=== PATIENT | female | born 1965 | race Caucasian/White ===

== ENCOUNTER → 2016-05-05 | Outpatient (CLI) | payer BC ==
[2016-05-05 18:47] LABS: ALT 127 U/L (9-52); AST 109 U/L (14-36); Alkaline Phosphatase 87 U/L (38-126); Anion Gap 12 mmol/L; Blood Urea Nitrogen 9 mg/dL (7-17); Calcium 8.9 mg/dL (8.4-10.2); Carbon Dioxide 25 mmol/L (22-30); Chloride 106 mmol/L (98-107); GGT 77 U/L (12-43); Glucose 85 mg/dL (74-99); Non-African American GFR(MDRD) >60 (>60 ml/min/1.73 sqM); Potassium 4.5 mmol/L (3.5-5.1); Sodium 143 mmol/L (137-145); Total Bilirubin 0.3 mg/dL (0.2-1.3); Total Protein 6.5 g/dL (6.3-8.2)
== END | disposition home or self-care (01) ==
LOC: MMGSC 14:34
PROVIDERS: ATTEND Family Medicine
DX: R79.89 Other specified abnormal findings of blood chemistry (principal)
CPT/HCPCS: 36415; 80053; 82977

== ENCOUNTER → 2016-06-02 | Outpatient (CLI) | payer BC ==
[2016-06-02 18:42] LABS: Bilirubin, Delta 0.2 mg/dL (0.0-0.2); Total Bilirubin 0.4 mg/dL (0.2-1.3); Total Protein 6.8 g/dL (6.3-8.2)
== END | disposition home or self-care (01) ==
LOC: MMGSC 14:19
PROVIDERS: ATTEND Family Medicine
DX: R94.5 Abnormal results of liver function studies (principal)
CPT/HCPCS: 36415; 80076

== ENCOUNTER → 2016-08-13 | Outpatient (CLI) | payer BC ==
[2016-08-13 19:37] LABS: ALT 37 U/L (9-52); AST 36 U/L (14-36); Alkaline Phosphatase 99 U/L (38-126); Anion Gap 10 mmol/L; Blood Urea Nitrogen 10 mg/dL (7-17); Calcium 9.2 mg/dL (8.4-10.2); Carbon Dioxide 26 mmol/L (22-30); Chloride 105 mmol/L (98-107); Glucose 177 mg/dL (74-99); Non-African American GFR(MDRD) >60 (>60 ml/min/1.73 sqM); Potassium 4.3 mmol/L (3.5-5.1); Sodium 141 mmol/L (137-145); Total Bilirubin 0.4 mg/dL (0.2-1.3); Total Protein 6.8 g/dL (6.3-8.2)
[2016-08-13 20:25] LABS: Vitamin B12 871 pg/mL (239-931)
== END ==
LOC: MMGSC 11:25
PROVIDERS: ATTEND Family Medicine
DX: F10.10 Alcohol abuse, uncomplicated (principal)
CPT/HCPCS: 36415; 80053; 82607

== ENCOUNTER → 2017-08-02 | Outpatient (CLI) | payer BC ==
[2017-08-02 20:15] LABS: ALT 31 U/L (9-52); AST 31 U/L (14-36); Albumin 4.2 g/dL (3.5-5.0); Alkaline Phosphatase 99 U/L (38-126); Anion Gap 13 mmol/L; Blood Urea Nitrogen 14 mg/dL (7-17); Calcium 9.7 mg/dL (8.4-10.2); Carbon Dioxide 24 mmol/L (22-30); Chloride 105 mmol/L (98-107); Cholesterol 208 mg/dL (<200); Glucose 131 mg/dL (74-99); HDL Cholesterol 99 mg/dL (40-60); LDL Cholesterol,Calculated 92 mg/dL (0-99); Magnesium 2.1 mg/dL (1.6-2.3); Sodium 142 mmol/L (137-145); Total Bilirubin 0.4 mg/dL (0.2-1.3); Total Protein 7.2 g/dL (6.3-8.2); Triglycerides 87 mg/dL (<150)
[2017-08-02 20:31] LABS: T4, Free (Free Thyroxine) 1.08 ng/dL (0.78-2.19)
[2017-08-02 20:41] LABS: Basophils # (A) 0.1 k/uL (0-0.2); Basophils % (A) 1 %; Eosinophils # (A) 0.4 k/uL (0-0.7); Eosinophils % (A) 7 %; HCT 38.1 % (34.0-46.0); HGB 11.7 gm/dL (11.4-16.0); Hypochromasia Moderate; Lymphocytes # (A) 2.1 k/uL (1.0-4.8); Lymphocytes % (A) 39 %; MCH 26.4 pg (25.0-35.0); MCHC 30.7 g/dL (31.0-37.0); MCV 86.1 fL (80.0-100.0); Mean Platelet Volume 9.5; Monocytes # (A) 0.3 k/uL (0-1.0); Monocytes % (A) 5 %; Neutrophils # (A) 2.5 k/uL (1.3-7.7); Neutrophils % (A) 46 %; Platelet Count 303 k/uL (150-450); RBC 4.43 m/uL (3.80-5.40); RDW 14.3 % (11.5-15.5); WBC 5.4 k/uL (3.8-10.6)
[2017-08-03 02:16] LABS: Vitamin D 25 Hydroxy 20.7 ng/mL (30.0-100.0)
[2017-08-03 02:33] LABS: Iron Saturation 6.48 (12.00-45.00)
== END | disposition home or self-care (01) ==
LOC: MMGSC 15:50
PROVIDERS: ATTEND Family Medicine
DX: M79.662 Pain in left lower leg (principal); M79.661 Pain in right lower leg; R20.2 Paresthesia of skin
CPT/HCPCS: 36415; 80053; 80061; 82306; 82607; 82728; 83540; 83550; 83735; 84439; 84443; 85025

== ENCOUNTER → 2017-09-24 | Outpatient (CLI) | payer BC ==
--- NOTE | 2017-09-27 07:34 | MR ---
EXAMINATION TYPE: MR lumbar spine wo/w con DATE OF EXAM: 09/24/2017 COMPARISON: NONE HISTORY: Back pain x14 years with previous Lspine surgery, Gadavist 10ml TECHNIQUE: Multiplanar, multisequence images of the lumbar spine were acquired utilizing 10 mL intravenous Gadav ist gadolinium contrast. L1-L2: Normal disc appearance without desiccation. No herniation, protrusion or disc bulging. No ca nal stenosis is present. Foramina are patent bilaterally. L2-L3: There is some hypertrophic change of the ligamentum flavum. No significant foraminal encroachm ent or central stenosis. No disc herniation. L3-L4: There is some facet arthropathy present. No sizable disc herniation or foraminal encroachment, no central stenosis. L4-L5: Loss of disc height and signal is present, small broad-based posterior disc bulge causes sligh t anterior mass effect on the thecal sac. No significant central stenosis or foraminal encroachment. Facet arthropathy with hypertrophy of the ligamentum flavum encroaches on the lateral recesses. L5-S1: Spondylolysis is present bilaterally at L5. Facet arthropathy is present with hypertrophy of t he ligamentum flavum encroaching on the lateral recesses. Listhesis contributes with endplate disc co mplex to cause bilateral foraminal encroachment. Laminectomy change present on the left. Lumbar segments are intact. No paraspinal masses are identified. Conus medullaris has a normal appe arance. There is anterolisthesis grade 1 L5-S1, there is associated loss of disc height and signal wi th endplate discogenic marrow signal change, there is multilevel spondylosis. No abnormal enhancement following contrast administration. IMPRESSION: Spondylolysis, spondylolisthesis, degenerative disc disease and foraminal encroachment as described. Postop changes. Facet arthropathy.
== END ==
LOC: RADMRIMAIN 15:01
PROVIDERS: ATTEND Family Medicine
DX: M47.816 Spondylosis without myelopathy or radiculopathy, lumbar region (principal); M47.817 Spondylosis without myelopathy or radiculopathy, lumbosacral region; M43.16 Spondylolisthesis, lumbar region; M51.36 Other intervertebral disc degeneration, lumbar region
CPT/HCPCS: 72158; A9581

== ENCOUNTER → 2021-12-24 | Outpatient (CLI) | payer OTHER ==
--- NOTE | 2021-12-24 14:57 | P.SLEEP ---
History of Present Illness DATE: 12/24/2021 CONSULTATION/NEW PATIENT EVALUATION HISTORY OF PRESENT ILLNESS/SLEEP-WAKE EVALUATION: 56 year old lady had been evaluated in the sleep center for possible obstructive sleep apnea hypopnea syndrome and difficulties to initiate sleep. SLEEP SCHEDULE: Usually sleep schedule from 1 to 2 a.m. until 910 AM . FALLING ASLEEP: Patient referred difficulties to fall asleep. She is using her computer in the evening, sometimes a foll sleep in the couch for short period of time and then was when she goes to bed she cannot fall asleep. DURING SLEEP: She uses sleeps on the side and stomach position. She snores, and wakes up from sleep 3 times with nocturia. No history of hypnogogical hallucinations, sleep paralysis, or cataplexy. DURING THE DAY/WAKE STATE: In the morning patient wake up tired, has problems with concentration, depression. [place] sleepiness scale is increased to 13. Patient takes nap at 1 PM. PAST MEDICAL HISTORY: Depression, left leg peripheral neuropathy, anemia. PAST SURGICAL HISTORY: Gastric bypass 2000, back surgery 2001, 2 wrist surgeries, 2, breast implants. MEDICATIONS: Gabapentin up to 4 times a day, Cymbalta, Xarelto. SOCIAL HISTORY: Negative for smoking, alcohol consumption none for last 5 years, recovery EtOH. FAMILY HISTORY: Hypertension, sleep apnea, cancer, anemia, diabetes, liver problems, mental illness. REVIEW OF SYSTEMS: Snoring, multiple awakenings from sleep, sleepiness.. No fevers. No double vision. No recent chest pain. No shortness of breath. No abdominal pain. No bleeding episodes. No blood in urine. No seizure episodes. PHYSICAL EXAMINATION: GENERAL: A pleasant patient without any distress. VITAL SIGNS: BP 117/87, HR 99, RR 16, weight 228.8 pounds, height 5 foot 3 inches, body mass index 40.3. HEENT: PERRLA, EOMI. Evaluation of oropharynx showed tongue protrudes midline, low position of soft palate Mallampati 4. NECK: Supple. No JVD. Thyroid is not palpable. 15 inches in circumference. LUNGS: Clear to percussion and to auscultation. Good air exchange. No wheezing or rhonchi. HEART: S1, S2 regular. No murmurs, gallops or rubs. ABDOMEN: Soft and nontender. Bowel sounds are present. No organomegaly appreciated. Obese EXTREMITIES: No clubbing or cyanosis. CIGAR BANDER HAND: Awake, alert, and oriented x3. Cranial nerves 2 to 7 intact. There is no fasciculation or atrophy noted. No focal deficits observed. ASSESSMENT: 1. Snoring, multiple awakenings from sleep, extremely low position of soft palate Mallampati 4, sleepiness [place] Sleepiness Scale increased to 13. Obstructive sleep apnea hypopnea syndrome. 2. Obesity body mass index 40.3. 3 history of depression. 4. Left leg neuropathy. 5 status post gastric bypass surgery. 6. Status post back surgery. 7. Status post 2 C-sections. 8. Status post 2 wrist surgery. 9. Status post breast implants. 10. Sleep delay syndrome. PLAN: 1. Polysomnography for evaluation of patient's breathing during sleep. 2. CPAP/BiPAP titration if sleep study confirms obstructive sleep apnea- hypopnea syndrome. 3. Preferable position during sleep on the side. 4. No driving if patient feels any sleepiness. Patient is aware of civil and criminal liability for unsafe driving. 5. Sleep hygiene with regular sleep time for at least 7.5-8 hours. 6. Watching and losing weight. 7. As less as possible bright light exposure in the evening and as much as possible bright light exposure in the morning with the goal to move to sleeps digital to the area time Thank you very much for referring this patient for consultation. Sincerely, Ben Whalen MD, PhD, FAASM. Diplomat of [place] [employer], Sleep Medicine Board by [place] [employer] [place] [employer] [facility] [place] [facility] Note - Sleep Note Sleep Note: Temperature: Pulse Rate: Respiratory Rate: Blood Pressure: SpO2: Height: Weight: BMI: Neck Circumference:
== END | disposition home or self-care (01) ==
LOC: SLEEP 13:50
PROVIDERS: ATTEND Internal Medicine
DX: G47.33 Obstructive sleep apnea (adult) (pediatric) (principal); E66.9 Obesity, unspecified; G62.9 Polyneuropathy, unspecified; Z86.59 Personal history of other mental and behavioral disorders; Z98.890 Other specified postprocedural states
CPT/HCPCS: 99211

== ENCOUNTER → 2022-05-25 | Outpatient (CLI) | payer OTHER ==
--- NOTE | 2022-05-26 07:46 | MR ---
EXAMINATION TYPE: MR shoulder LT wo con DATE OF EXAM: 05/26/2022 COMPARISON: Outside left shoulder x-ray 10 days ago HISTORY: Left shoulder pain and limited range of motion for 2 years. TECHNIQUE: Multiplanar, multisequence imaging of the left shoulder is performed without contrast. FINDINGS: Rotator Cuff: Some increased signal along the distal supraspinatus tendon with small focal articular surface tear sagittal image 5 and coronal images 9 and 10 involving anterior fibers. Rotator cuff mus destiney bulk is preserved. Acromioclavicular Joint: Type II downsloping acromion with loss of underlying fat plane, reference co bill image 11. Mild narrowing and capsular hypertrophy. Mild spurring. Glenohumeral Joint: There is at least moderate narrowing with small spur inferior medial humeral head coronal image 13. Labrum: Superior labrum shows increased signal consistent with degenerative tearing. Biceps Tendon: The long head of biceps is in normal location within bicipital groove. Bone marrow signal: Subchondral cystic change in the anterior and lateral humeral head. Subchondral c ystic change involving the inferior osseous glenoid. Other: No additional significant abnormality is appreciated. IMPRESSION: 1. Tendinosis and partial tearing of the distal supraspinatus tendon. Degenerative superior labral te ar. Degenerative changes throughout the left shoulder as detailed above along with type II downslopin g acromion noted.
== END | disposition home or self-care (01) ==
LOC: RADMRIMAIN 20:01
PROVIDERS: ATTEND Orthopaedic Surgery
DX: M75.112 Incomplete rotator cuff tear or rupture of left shoulder, not specified as traumatic (principal); M19.012 Primary osteoarthritis, left shoulder; M67.814 Other specified disorders of tendon, left shoulder

== ENCOUNTER 2022-07-08 14:35 | Emergency (ER) | payer OTHER ==
[2022-07-08 14:44] VITALS: TEMP 98
--- NOTE | 2022-07-08 15:13 | ED ---
Lower Extremity Injury HPI - General Chief Complaint: Extremity Injury, Lower Stated Complaint: ankle injury Time Seen by Provider: 07/08/22 14:44 Source: patient, EMS, RN notes reviewed Mode of arrival: EMS Limitations: no limitations - History of Present Illness Initial Comments: 56-year-old female presents emergency department chief complaint of right ankle injury. Patient states she is walking in the past or with her horse when she stepped on a rock twisting her ankle. Patient states that she has pain diffusely states she felt some popping, crunching sound. Patient has had no prior injury to her right ankle states she had issues where her left she has seen Dr. Powell in the past. She was splinted by EMS and transported. - Related Data Previous Rx's Medication Instructions Recorded HYDROcodone/APAP 7.5-325MG [[place] 1 tab PO Q6HR PRN 3 Days #12 tab 07/08/22 7.5-325] Allergies Allergy/AdvReac Type Severity Reaction Status Date / Time morphine AdvReac Itching Verified 07/08/22 14:44 Review of Systems ROS Statement: Those systems with pertinent positive or pertinent negative responses have been documented in the HPI. ROS Other: All systems not noted in ROS Statement are negative. 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 Absent: scleral icterus, conjunctival injection, periorbital swelling Neck exam: Present: normal inspection, full ROM. Absent: tenderness, meningismus, lymphadenopathy Respiratory exam: Present: normal lung sounds bilaterally. Absent: respiratory distress, wheezes, rales, rhonchi, stridor Cardiovascular Exam: Present: regular rate, normal rhythm, normal heart sounds. Absent: systolic murmur, diastolic murmur, rubs, gallop, clicks Extremities exam: Present: other (Right ankle there is diffuse tenderness, swelling noted neurovascular intact no proximal tib-fib tenderness no distal fo ot tenderness) Neurological exam: Present: alert Course Vital Signs 07/08/22 07/08/22 14:38 16:36 Temperature 98.0 F Pulse Rate 77 72 Respiratory 16 18 Rate Blood Pressure 142/88 143/90 O2 Sat by Pulse 97 98 Oximetry Procedures - Orthopedic Splinting/Casting Injury #1 Side: right Lower Extremity Injury Location: short leg, ankle Lower Extremity Immobilizer: posterior splint, synthetic pre-padded splint Other Orthopedic Equipment: walker, other (Wheelchair) Medical Decision Making - Medical Decision Making Was pt. sent in by a medical professional or institution (JAJA Cooper, PHARMACY SALESPERSON, urgent care, hospital, or snf...) When possible be specific @ -No Did you speak to anyone other than the patient for history (EMS, parent, family, police, friend...)? What history was obtained from this source @ -EMS provided history and prehospital care Did you review nursing and triage notes (agree or disagree)? Why? @ -I reviewed and agree with nursing and triage notes Were old charts reviewed (outside hosp., previous admission, EMS record, old EKG, old radiological studies, urgent care reports/EKG's, snf records)? Report findings @ -No old charts were reviewed Differential Diagnosis (chest pain, altered mental status, abdominal pain women, abdominal pain men, vaginal bleeding, weakness, fever, dyspnea, syncope, headache, dizziness, GI bleed, back pain, seizure, CVA, palpatations, mental health, musculoskeletal)? @ -Right fibular fracture, tibia fracture, ankle dislocation, EKG interpreted by me (3pts min.). @ -None X-rays interpreted by me (1pt min.). @ -X-ray tib-fib and right ankle was for showing evidence of right tib-fib fracture CT interpreted by me (1pt min.). @ -None done U/S interpreted by me (1pt. min.). @ -None done What testing was considered but not performed or refused? (CT, X-rays, U/S, labs)? Why? @ -None What meds were considered but not given or refused? Why? @ -None Did you discuss the management of the patient with other professionals (professionals i.e. JAJA Cooper, PHARMACY SALESPERSON, lab, RT, psych nurse, clinical social work aide, watch case polisher, teacher, seaman officer, case consultant)? Give summary @ -I did discuss case with Dr. Powell on-call orthopedic and known to the patient's recommend patient to be discharged patient was having difficulty ambulate stated the patient may go home in a wheelchair or scooter Was smoking cessation discussed for >3mins.? @ -No Was critical care preformed (if so, how long)? @ -No Were there social determinants of health that impacted care today? How? (Homelessness, low income, unemployed, alcoholism, drug addiction, transportation, low edu. Level, literacy, decrease access to med. care, [facility] [facility], rehab)? @ -No Was there de-escalation of care discussed even if they declined (Discuss DNR or withdrawal of care, Hospice)? DNR status @ -No What co-morbidities impacted this encounter? (DM, HTN, Smoking, COPD, CAD, Cancer, CVA, ARF, Chemo, Hep., AIDS, mental health diagnosis, sleep apnea, morbid obesity)? @ -None Was patient admitted / discharged? Hospital course, mention meds given and route, prescriptions, significant lab abnormalities, going to OR and other pertinent info. @ -Discharge patient has right mid fibular fracture, posterior tibia fracture patient was splinted was given a prescription for a knee scooter was sent home in a wheelchair until she can brain picker scooter. Undiagnosed new problem with uncertain prognosis? @ -No Drug Therapy requiring intensive monitoring for toxicity (Heparin, Nitro, Insulin, Cardizem)? @ -No Were any procedures done? @ -No Diagnosis/symptom? @ -Right tib-fib fracture Acute, or Chronic, or Acute on Chronic? @ -Acute Uncomplicated (without systemic symptoms) or Complicated (systemic symptoms)? @ -Uncomplicated Side effects of treatment? @ -No Exacerbation, Progression, or Severe Exacerbation? @ -No Poses a threat to life or bodily function? How? (Chest pain, [place], [place], pneumonia, PE, COPD, DKA, ARF, appy, cholecystitis, CVA, Diverticulitis, Homicidal, Suicidal, threat to staff... and all critical care pts) @ -No Disposition Clinical Impression: Right tibial fracture, Right fibular fracture Disposition: HOME SELF-CARE Condition: Stable Instructions (If sedation given, give patient instructions): Leg Fracture (ED) Additional Instructions: Please return to the Emergency Department if symptoms worsen or any other concerns. Prescriptions: HYDROcodone/APAP 7.5-325MG [[place] 7.5-325] 1 tab PO Q6HR PRN 3 Days #12 tab PRN Reason: Pain Is patient prescribed a controlled substance at d/c from ED?: Yes When asked, does pt state using other controlled substances?: No If prescribed controlled substance>3 days was MAPS reviewed?: Prescribed <3 Days If opioid is for acute pain is fill amount 7 days or less?: Yes If Rx opioid, was Start Talking consent form obtained?: Yes Referrals: Bettye Garcia [Primary Care Provider] - 1-2 days Alonso Powell DO [Doctor of Osteopathic Medicine] - 1-2 days Time of Disposition: 16:36
[2022-07-08] MEDS ORDERED: HYDROmorphone 1 MG/ML 1 ML SYRINGE IM STA (15:31)
--- NOTE | 2022-07-08 15:48 | XR ---
EXAMINATION TYPE: XR ankle complete RT DATE OF EXAM: 07/08/2022 COMPARISON: NONE HISTORY: Pain FINDINGS: Three views of the ankle demonstrate diffuse osteopenia. There is a posterior malleolus fracture. Vas cular calcification seen. There may be slight widening of the medial compartment of the ankle mortise . IMPRESSION: 1. There appears be a mildly displaced intra-articular fracture of the posterior tibia at the level o f the posterior malleolus. 2. Slight widening and asymmetry of the ankle mortise medially.
--- NOTE | 2022-07-08 15:50 | XR ---
EXAMINATION TYPE: XR tibia fibula RT DATE OF EXAM: 07/08/2022 COMPARISON: NONE HISTORY: Pain TECHNIQUE: Two views are submitted. FINDINGS: Comminuted displaced fracture mid diaphysis oblique orientation fibular fracture. A displaced posterior malleolar fracture with slight asymmetry to the ankle joint space Diffuse osteopenia. IMPRESSION: 1. Comminuted displaced oblique fracture mid diaphysis tibia. 2. Displaced distal posterior malleolus tibial fracture.
[2022-07-08] MEDS ORDERED: HYDROcodone/APAP 7.5-325MG 1 EACH TAB PO ONE (16:32)
[2022-07-08 16:36] VITALS: BP 143/90; PULSE 72; RESP 18
== END 2022-07-08 17:39 | disposition home or self-care (01) ==
LOC: EC 14:35
DX: S82.201A Unspecified fracture of shaft of right tibia, initial encounter for closed fracture (principal); S82.401A Unspecified fracture of shaft of right fibula, initial encounter for closed fracture; Z88.5 Allergy status to narcotic agent; X50.1XXA Overexertion from prolonged static or awkward postures, initial encounter
CPT/HCPCS: 73590; 73610; 99284; 96372; J1170

== ENCOUNTER 2022-07-13 10:25 | Day surgery (SDC) | payer OTHER ==
[2022-07-10 12:48] VITALS: BMI 41.7
--- NOTE | 2022-07-12 13:10 | HP ---
HISTORY AND PHYSICAL DATE OF SURGERY: 07/13/2022. HISTORY OF PRESENT ILLNESS: Trina Contreras is a 56-year-old patient seen with a right ankle syndesmotic injury. I discussed open reduction and internal fixation of right ankle syndesmosis. The procedure, risks, complications, benefits, and recovery were discussed. She was agreeable to the surgical intervention. Consent regarding the procedure was obtained. PAST MEDICAL HISTORY: Cardiovascular disease. PAST SURGICAL HISTORY: Noncontributory. DAILY MEDICATIONS: 1. Prozac. 2. Xarelto. 3. Aleve. 4. Gabapentin. ALLERGIES: Morphine, Vicodin. SOCIAL HISTORY: She denies tobacco use. PHYSICAL EVALUATION OF THE RIGHT ANKLE: She has some tenderness along the syndesmotic area. Limited range of motion. Some mild swelling along with ecchymosis. No open wounds. Distal neurovascular exam is intact. Ankle x-rays revealed widening of the medial mortise along with a posterior malleolar fracture and midshaft fibular fracture. IMPRESSION: 1. Right ankle syndesmotic injury. 2. Right ankle posterior malleolar fracture. PLAN: Open reduction and internal fixation of right ankle syndesmosis. MMODL / IJN: [id number] /
[~2022-07-13 10:25] MED LIST: DEXAMETHASONE SOD PHOSPHATE 4 MG/ML 1 ML VIAL IV ONE; FAMOTIDINE 20 MG/2 ML VIAL IV PRN; HYDROmorphone 0.5 MG/0.5 ML SYRINGE IVP PRN; LACTATED RINGERS 1,000 ML IV SCH; LIDOCAINE 1% (10MG/ML) FOR IV START INTRADERMA PRN; METOCLOPRAMIDE 5 MG/ML 2 ML VIAL IVP PRN; MIDAZOLAM 2 MG/2 ML VIAL IV PRN; ONDANSETRON 4 MG/2 ML VIAL IVP ONE; fentaNYL (PF) 50 MCG/ML 2 ML AMP IVP PRN
[2022-07-13 10:56] VITALS: RESP 16
[2022-07-13 11:26] LABS: Basophils # (A) 0.1 k/uL (0-0.2); Basophils % (A) 1 %; Eosinophils # (A) 0.7 k/uL (0-0.7); Eosinophils % (A) 10 %; HGB 13.7 gm/dL (11.4-16.0); Lymphocytes # (A) 1.7 k/uL (1.0-4.8); Lymphocytes % (A) 24 %; MCHC 33.5 g/dL (31.0-37.0); MCV 98.3 fL (80.0-100.0); Mean Platelet Volume 8.2; Monocytes # (A) 0.4 k/uL (0-1.0); Monocytes % (A) 6 %; Neutrophils % (A) 57 %; Platelet Count 373 k/uL (150-450); RBC 4.17 m/uL (3.80-5.40); RDW 12.5 % (11.5-15.5); WBC 7.1 k/uL (3.8-10.6)
[2022-07-13 11:48] LABS: Glucose,Whole Blood 90 mg/dL (70-110)
[2022-07-13 11:52] LABS: African American GFR (CKD) >90 (>60 ml/min/1.73 sqM); Anion Gap 5 mmol/L; Blood Urea Nitrogen 9 mg/dL (7-17); Calcium 8.8 mg/dL (8.4-10.2); Carbon Dioxide 31 mmol/L (22-30); Chloride 103 mmol/L (98-107); Glucose 99 mg/dL (74-99); Non-African American GFR(CKD) >90 (>60 ml/min/1.73 sqM); Potassium 4.3 mmol/L (3.5-5.1); Sodium 139 mmol/L (137-145)
[2022-07-13] MEDS ORDERED: MIDAZOLAM 2 MG/2 ML VIAL ONE (12:25)
[2022-07-13] MEDS ORDERED: PROPOFOL 10 MG/ML 20 ML VIAL IV ONE (12:25)
[2022-07-13] MEDS ORDERED: fentaNYL (PF) 50 MCG/ML 2 ML AMP ONE (12:25)
[2022-07-13] MEDS ORDERED: SUCCINYLCHOLINE CHLORIDE 200 MG/10 ML VIAL IV ONE (12:25)
[2022-07-13] MEDS ORDERED: LIDOCAINE 2% INJ 20 MG/ML (2 ML VIAL) ONE (12:25)
[2022-07-13] MEDS ORDERED: KETOROLAC 15 MG/ML 1 ML VIAL ONE (12:25)
[2022-07-13] MEDS ORDERED: ROPIVACAINE 5 MG/ML 30 ML VIAL ONE (12:25)
--- NOTE | 2022-07-13 12:49 | P.ANPRN ---
Procedure Note - Anesthesia - Nerve Block Performed Right Popliteal Single Date of Procedure: 07/13/22 Procedure Start Time: 11:17 Procedure Stop Time: 11:32 Location of Patient: PreOp Indication: Acute Post-Operative Pain, Requested by Surgeon Sedation Type: Sedate with meaningful contact maintained Preparation: Sterile Prep Position: Left Lateral Catheter: None Needle Types: Pajunk Needle Gauge: 21 Ultrasound used to visualize needle placement: Yes Ultrasound used to observe medication spread: Yes Injectate: 0.5% Ropivacaine (see comment for volume) (20 mls) Blood Aspirated: No Pain Paresthesia on Injection Noted: No Resistance on Injection: Normal Image Stored and Saved: Yes Events: Uneventful and Well Tolerated
--- NOTE | 2022-07-13 12:50 | P.ANPRN ---
Procedure Note - Anesthesia - Nerve Block Performed Right Adductor Canal Single Date of Procedure: 07/13/22 Procedure Start Time: 11:33 Procedure Stop Time: 11:38 Location of Patient: PreOp Indication: Acute Post-Operative Pain, Requested by Surgeon Sedation Type: Sedate with meaningful contact maintained Preparation: Sterile Prep Position: Supine Catheter: None Needle Types: Pajunk Needle Gauge: 21 Ultrasound used to visualize needle placement: Yes Ultrasound used to observe medication spread: Yes Injectate: 0.5% Ropivacaine (see comment for volume) (15 mls) Blood Aspirated: No Pain Paresthesia on Injection Noted: No Resistance on Injection: Normal Image Stored and Saved: Yes Events: Uneventful and Well Tolerated
[2022-07-13] MEDS ORDERED: ceFAZolin 1,000 MG in SODIUM CHLORIDE 0.9% 1,000 ML IRRIGATION ONE (12:56)
[2022-07-13] MEDS ORDERED: BUPIVACAINE (PF) 0.25% 30 ML VIAL SQ ONE (13:17)
[2022-07-13] MEDS ORDERED: LACTATED RINGERS 1,000 ML IV ONE (13:25)
[2022-07-13 13:41] VITALS: TEMP 97.1
--- NOTE | 2022-07-13 13:43 | P.OP ---
Date of Procedure: 07/13/22 Preoperative Diagnosis: Right ankle syndesmotic injury Postoperative Diagnosis: Right ankle syndesmotic injury Procedure(s) Performed: Open adduction and internal fixation right ankle syndesmosis Implants: 1-Arthrex 2 hole plate 2-Arthrex tight rope's Anesthesia: SYLVIA local Surgeon: Alonso Powell Managed Care Nurse #1: Xu Talamantes Estimated Blood Loss (ml): 10 Pathology: none sent Condition: stable Disposition: PACU Indications for Procedure: 56-year-old patient seen with a right ankle syndesmotic injury. I recommended open reduction and internal fixation. Patient was agreeable. Consents obtained. Operative Findings: see description of procedure Description of Procedure: The patient was taken to the operative suite. The patient received preoperative IV antibiotics. The patient underwent a general anesthetic by the department of anesthesia. A well-padded tourniquet placed proximal right thigh. Right lower extremity prepped and draped in the normal sterile orthopedic fashion. The extremity was elevated and tourniquet insufflated to 300. C-arm was brought into the operative field. We noted medial mortise widening and disruption of the syndesmosis. I made an incision measuring approximately 34 centimeters along the lateral malleolus area. I dissected down to the lateral malleolus. Retractors were positioned. We chose our 2-hole Arthrex plate. It was stabilized. I noted adequate positioning of this. We now drilled 2 guidewires through the lateral malleolus and into the distal tibia parallel to each other. We now utilizing a cane drill drilled over the guidewire distally. I now inserted my first Arthrex tight rope. I tightened that down which did appear to restore the mortise and restore the tibial fibular syndesmosis. I now overdrilled the second guidewire introduced my second Arthrex tight rope. I now tightened that down as well. C-arm confirmed jehovah's witness of the mortise and jehovah's witness of the syndesmosis.. We obtained a lateral which demonstrated the posterior malleolar fracture which appeared adequately aligned. Spot films were obtained to document this. The C-arm was pulled back. The wound was irrigated. The subcutaneous soft tissues were repaired with 2-0 Vicryl. The skin was approximated with nylon suture. Sterile dressings were applied. The tourniquet was released with immediate capillary refill of the extremity and digits noted. We now applied a modified bulky Cole splint with ankle in neutral position. The patient was awakened and transferred to recovery in stable condition. Xu WILKINSON assisted in all aspects of this procedure.
[2022-07-13] MEDS ORDERED: SENNOSIDES-DOCUSATE SODIUM 1 EACH TAB PO PRN (13:45)
[2022-07-13] MEDS ORDERED: HYDROcodone/APAP 5-325MG 1 EACH TAB PO PRN ×2 (13:45)
[2022-07-13] MEDS ORDERED: HYDROmorphone 0.5 MG/0.5 ML SYRINGE IVP PRN ×2 (13:45)
--- NOTE | 2022-07-13 14:13 | XR ---
EXAMINATION TYPE: XR ankle complete RT DATE OF EXAM: 07/13/2022 COMPARISON: NONE HISTORY: Pain TECHNIQUE: 4 views are submitted FINDINGS: There is postsurgical change involving the distal tibia and fibula. Correlate for posterior malleoli are fractured. IMPRESSION: Postoperative change
[2022-07-13 14:52] VITALS: BP 136/88; PULSE 79
--- NOTE | 2022-07-13 15:12 | FL ---
EXAMINATION TYPE: FL guidance operating room DATE OF EXAM: 07/13/2022 HISTORY: Fluoroscopy time 39sec.FL time. .[id number] DAP of fluoroscopy provided. IMPRESSION: 1. Fluoroscopy time.
== END 2022-07-13 15:21 | disposition home or self-care (01) ==
LOC: OR 10:25
PROVIDERS: ATTEND Orthopaedic Surgery
DX: S93.431A Sprain of tibiofibular ligament of right ankle, initial encounter (principal); S82.891A Other fracture of right lower leg, initial encounter for closed fracture; G89.18 Other acute postprocedural pain; X58.XXXA Exposure to other specified factors, initial encounter; I25.10 Atherosclerotic heart disease of native coronary artery without angina pectoris; Z79.01 Long term (current) use of anticoagulants; Z79.899 Other long term (current) drug therapy; Z86.718 Personal history of other venous thrombosis and embolism; Z98.890 Other specified postprocedural states; G62.9 Polyneuropathy, unspecified; Z88.5 Allergy status to narcotic agent
CPT/HCPCS: 27829; 64447; 64445; 76942; 80048; 85025; 73610; C1713; J2250; J0330; J1100; J0690 ×2; J2405; J3010; J2795; J1885; J2704; J2001